=== PATIENT | male | born 1965 | race Caucasian/White ===

== ENCOUNTER 2021-06-15 00:53 | Day surgery (SDC) | payer BC, SELFPAY ==
[2021-05-29 13:09] VITALS: BMI 44.9
--- NOTE | 2021-06-14 12:20 | WPDANESEPPF ---
Anes - Initial Pre Proc Eval Procedure: Operation Date: 06/15/21 07:30 Proposed Procedures p Screening Colonoscopy - Azam Marrero DO Date/Time: 06/14/21 12:20 Surgeon: Azam Marrero DO Pre Op Diagnosis: hx of colon polyps Patient Data Age: 56 Gender: M Height: 1.75 m Weight: 138 kg Allergies Allergy/AdvReac Type Severity Reaction Status Date / Time No Known Allergies Allergy Verified 06/15/21 06:18 Home Medications Medication Instructions Recorded Confirmed Type atorvastatin 20 mg PO DAILY 05/29/21 06/15/21 History lisinopril-hydrochlorothiazide 1 tablet PO DAILY 05/29/21 06/15/21 History metformin 500 mg PO DAILY 05/29/21 06/15/21 History metoprolol tartrate 100 mg PO DAILY 05/29/21 06/15/21 History Patient hx anesthesia problems: none Family hx anesthesia problems: none PMFSH Past Medical History Medical History (Updated 06/15/21 @ 07:33 by Azam Marrero DO) Diabetes type 2, controlled Hyperlipidemia Hypertension Family History Family History (Updated 07/29/14 @ 07:13 by DOCTOR UNKNOWN) Other Family history of arthritis Hypertension Social History Social History Smoking status: Former smoker Smoking end date: 12/02/03 Alcohol intake: current Alcohol use details: 09-12 ruby elizabeth daily Substance use type: does not use Living arrangements: with family Gender identity (if verbalized by the patient): Male Spiritual care concerns: No Anes - Eval Final PreProcedure Day of Procedure 06/14/21 12:20 Patient weight: morbidly obese Heart: regular rate and rhythm Lungs: clear to auscultation and normal air movement Airway: Mallampati scale class II Neurological: alert and oriented Last oral intake: >/= 8 hours ASA classification: III Emergent: no Anesthetic plan: proceed Anesthesia type and monitoring: general GIVS and standard monitoring Informed Consent: The patient's anesthetic plan and its attendant risks and benefits were discussed with the patient/family/POA. Questions were solicited and answers provided to the satisfaction of the patient/family/POA.
[2021-06-15 06:41] VITALS: BP 123/86; PULSE 87; RESP 18; O2SAT 98; BMI 44.5
[2021-06-15 06:42] LABS: Glucose Point of Care 156 mg/dl (65-105)
[2021-06-15] MEDS: LACTATED RINGERS 1,000 ML 150 ML IV CONT (06:44)
--- NOTE | 2021-06-15 07:32 | PM.IMHP ---
H&P: HPI History of Present Illness Date/Time: 06/15/21 07:32 Chief Complaint: Hx of colon polyps Narrative: This is a 56-year-old man who presents for colonoscopy. His last colonoscopy was 5 years ago and polyps were removed at that time. He denies any family history of colon cancer. He denies any hematochezia or melena. Review of Systems Review of Systems: All systems reviewed & are unremarkable except as noted in HPI and below Constitutional: Constitutional: Denies chills, Denies fever(s), Denies headache(s) and Denies weight loss Eyes: Eyes: Denies change in vision ENT: Denies dizziness, Denies headache(s), Denies neck mass and Denies throat swelling Cardiovascular: Cardiovascular: Denies chest pain, Denies lightheadedness and Denies dyspnea Respiratory: Respiratory: Denies cough, Denies dyspnea and Denies wheezing Gastrointestinal: Gastrointestinal: Denies abdominal pain, Denies change in bowel habits, Denies nausea and Denies vomiting Genitourinary: Genitourinary: Denies hematuria and Denies dysuria Musculoskeletal: Musculoskeletal: Reports as per HPI Integumentary/Breasts: Skin/Breast: Reports as per HPI Neurologic: Denies dizziness and Denies headache(s) Allergic/Immunologic: Allergic/Immunologic: Denies throat swelling and Denies wheezing [facility] Past Medical History Medical History (Updated 06/15/21 @ 07:33 by Azam Marrero DO) Diabetes type 2, controlled Hyperlipidemia Hypertension Family History Family History (Updated 07/29/14 @ 07:13 by DOCTOR UNKNOWN) Other Family history of arthritis Hypertension Social History Social History Smoking status: Former smoker Smoking end date: 12/02/03 Alcohol intake: current Alcohol use details: 09-12 ruby elizabeth daily Substance use type: does not use Living arrangements: with family Gender identity (if verbalized by the patient): Male Spiritual care concerns: No Meds Home Medications and Allergies Home Medications Medication Instructions Recorded Confirmed Type atorvastatin 20 mg PO DAILY 05/29/21 06/15/21 History lisinopril-hydrochlorothiazide 1 tablet PO DAILY 05/29/21 06/15/21 History metformin 500 mg PO DAILY 05/29/21 06/15/21 History metoprolol tartrate 100 mg PO DAILY 05/29/21 06/15/21 History Allergies Allergy/AdvReac Type Severity Reaction Status Date / Time No Known Allergies Allergy Verified 06/15/21 06:18 Vital Signs Vital Signs - 24 hr 06/15/21 06:41 Pulse Rate 87 Respiratory Rate 18 Blood Pressure 123/86 Pulse Oximetry 98 Exam Const: General: no acute distress and alert Orientation/consciousness: patient oriented x3 HENMT: Head: normocephalic and atraumatic Ears: hearing grossly normal bilaterally General nose exam: Normal nares present Mouth: Yes Normal oral and palatal mucosa present Eyes: Periorbital: periorbital findings normal Sclera: sclerae normal EOM: EOMs intact bilaterally Neck: Neck: normal visual inspection, no lymphadenopathy and trachea midline Chest: Chest palpation & inspection: normal inspection of the chest Resp: Effort & Inspection: normal respiratory effort Auscultation: clear to auscultation bilaterally Cardio: Jugular venous distension: no JVD Rate: regular rate Rhythm: regular rhythm Heart sounds: S1 normal heart sound present and S2 normal heart sound present Peripheral pulses: Peripheral pulses 2+ throughout GI: Inspection: normal to inspection GI Palp: Yes Soft to palpation, No Tenderness to palpation present (GI), No Guarding due to palpation present (GI) and No Rebound tenderness present Percussion: Yes normal to percussion Auscultation: normal bowel sounds : General: Yes no CVA tenderness Back/Spine/Pelvis: Back: no CVA tenderness Neuro: General: patient oriented x3, no focal motor deficits and CN's II-XI intact bilaterally Cognition (Neuro): normal cognition Speech: normal speech Motor exam (neuro): 5/5 motor strengt
[2021-06-15] MEDS: SIMETHICONE ORAL SUSPENSION 20 MG/0.3 ML 30 ML BOTTLE 0.6 ML IRRIGATION (07:44)
[2021-06-15 07:55] VITALS: BP 103/64; PULSE 80; RESP 21; O2SAT 96
[2021-06-15 08:05] VITALS: BP 114/58; PULSE 70; RESP 12; O2SAT 99
[2021-06-15 08:15] VITALS: BP 109/60; PULSE 68; RESP 14; O2SAT 99
== END 2021-06-15 08:24 | disposition home or self-care (01) ==
PROVIDERS: PCP Internal Medicine; Visit Provider Surgery
PROC: 0DJD8ZZ Inspection of Lower Intestinal Tract, Via Natural or Artificial Opening Endoscopic (ICD-10-PCS; CPT 45378; principal; 2021-06-15 07:30)
DX: Z12.11 Encounter for screening for malignant neoplasm of colon (principal); D12.3 Benign neoplasm of transverse colon; E11.9 Type 2 diabetes mellitus without complications; E78.5 Hyperlipidemia, unspecified; I10 Essential (primary) hypertension; Z87.891 Personal history of nicotine dependence
CPT/HCPCS: 45380; 82948; 88305; J2704; J7120

== ENCOUNTER 2021-07-28 11:34 | Observation (INO) | payer BC, SELFPAY ==
[2021-07-28] VITALS (12 sets, daily range): BP systolic 92–132; BP diastolic 56–95; PULSE 75–153; RESP 14–21; TEMP 36.3–36.9; O2SAT 97–98; BMI 44.1
--- NOTE | 2021-07-28 11:48 | ECG_ITS ---
Measurements Intervals [place] Rate: 148 P: [place]: 0 QRS: -16 QRSD: 76 T: 20 QT: 274 QTc: 430 Interpretive Statements ATRIAL FLUTTER/TACHYCARDIA WITH RAPID VENTRICULAR RESPONSE BASELINE ARTIFACT- II, III ,AVL, AVF ABNORMAL ECG Electronically Signed On 07-28-2021 13:08:15 CDT by Martinez Cardona D.O.
[2021-07-28] MEDS: dilTIAZem HCl INJ 25 MG/5 ML VIAL 10 MG IV PUSH (12:14)
[2021-07-28 12:17] LABS: Basophils Absolute Auto 0.07 K/mm3 (0.00-0.10); Basophils Percent Auto 0.9 % (0.0-1.0); Eosinophils Absolute Auto 0.12 K/mm3 (0.02-0.50); Eosinophils Percent Auto 1.5 % (1.0-6.0); Hematocrit 42.8 % (40.0-54.0); Hemoglobin 14.4 g/dL (14.0-18.0); Immature Granulocyte Absolute 0.05 K/mm3 (0.00-0.00); Immature Granulocyte Percent A 0.6 % (0.0-0.0); Lymphocytes Absolute Auto 1.46 K/mm3 (1.10-4.50); Mean Corpuscular HGB Conc 33.6 g/dL (32.0-36.0); Mean Corpuscular Hemoglobin 32.4 pg (27.0-31.0); Mean Corpuscular Volume 96.4 fL (78.0-102.0); Mean Platelet Volume 10.1 fl (8.7-11.0); Monocytes Absolute Auto 0.67 K/mm3 (0.10-0.90); Monocytes Percent Auto 8.3 % (2.0-11.0); Neutrophils Absolute Auto 5.8 K/mm3 (1.7-7.2); Neutrophils Percent Auto 70.7 % (50.0-70.0); Platelet Count Result 235 K/mm3 (150-420); Red Blood Count 4.44 M/mm3 (4.70-6.10); Red Cell Distribution Width 13.4 % (11.6-14.4); White Blood Count 8.1 K/mm3 (4.8-10.8)
[2021-07-28 12:29] LABS: INR 1.1; Prothrombin Time 11.4 Seconds (9.50-12.10)
--- NOTE | 2021-07-28 12:34 | ED.GENADULT ---
HPI - General Adult General Chief complaint: Arrhythmia/Palpitations Stated complaint: sent over by Source: patient Mode of arrival: ambulatory Limitations: no limitations History of Present Illness HPI narrative: Lb is a 56M with a PMH of colon polyps, HLD, HTN, DMII and etoh abuse that presented to the ED from Dr. Cain's clinic. A few days ago he felt his heart race but it went away. However, he had been taking his vitals and his heart rate was in the 140's so he made an appointment. An EKG in clinic showed a rate of 150's. Despite this HR he has no palpitations, CP, SOB, lightheadedness, nausea or vomiting. Related Data Home Medications Medication Instructions Recorded Confirmed atorvastatin 20 mg PO DAILY 05/29/21 07/28/21 lisinopril-hydrochlorothiazide 1 tablet PO DAILY 05/29/21 07/28/21 metformin 500 mg PO DAILY 05/29/21 07/28/21 metoprolol tartrate 100 mg PO DAILY 05/29/21 07/28/21 Allergies Allergy/AdvReac Type Severity Reaction Status Date / Time No Known Allergies Allergy Verified 06/15/21 06:18 Review of Systems Constitutional: Constitutional: Reports no additional constitutional complaints Eyes: Eyes: Reports no additional eye complaints ENT: Reports system reviewed and no additional complaints, except as documented Cardiovascular: Cardiovascular: Reports as per HPI Respiratory: Respiratory: Reports no additional respiratory complaints Gastrointestinal: Gastrointestinal: Reports no additional gastrointestinal complaints Genitourinary: Genitourinary: Reports no additional male genitourinary complaints Musculoskeletal: Musculoskeletal: Reports no additional musculoskeletal complaints Integumentary/Breasts: Skin/Breast: Reports system reviewed and no additional complaints, except as docu Neurologic: Reports system reviewed and no additional complaints, except as documented Psychiatric: Psychiatric: Reports no additional psychiatric complaints Endocrine: Endocrine: Reports no additional endocrine complaints Hematologic/Lymphatic: Hematologic/Lymphatic: Reports no additional hematologic/lymphatic complaints Allergic/Immunologic: Allergic/Immunologic: Reports no additional allergic/immunologic complaints [facility] Past Medical History Medical History Diabetes type 2, controlled Hyperlipidemia Hypertension Family History Family History Other Family history of arthritis Hypertension Social History Social History Smoking packs per day: 1 Smoking cigarettes per day: 20.0 Years smoked: 25 Smoking pack-years: 25.00 Smoking status: Former smoker Tobacco type: cigarettes Second hand tobacco smoke exposure: No Smoking end date: 07/07/03 Alcohol intake: current Drinks per week: 20 Alcohol use details: 09-12 ruby elizabeth daily Substance use: never Substance use type: does not use Gender identity (if verbalized by the patient): Male Spiritual care concerns: No Exam Const: General: no acute distress and alert Orientation/consciousness: patient oriented x3 Limitations: No altered mental status HENMT: Head: normal to inspection Other: atrauamtic Eyes: Conjunctivae: conjunctivae normal Pupils: Equal, round and reactive pupils present Neck: Neck: normal visual inspection Chest: Chest palpation & inspection: normal inspection of the chest Resp: Effort & Inspection: normal respiratory effort Auscultation: clear to auscultation bilaterally Cardio: Rate: tachycardic Rhythm: regular rhythm Heart sounds: no murmurs GI: Inspection: non-distended GI Palp: Yes Soft to palpation, No Tenderness to palpation present (GI) and No Guarding due to palpation present (GI) Skin: General skin exam: normal color Rashes: no rashes Neuro: General: patient oriented x3 and moves all extremities
[2021-07-28 12:42] LABS: Alanine Aminotransferase 77 U/L (16-63); Albumin Level 3.8 g/dL (3.4-5.0); Alkaline Phosphatase 81 U/L (46-116); Anion Gap 10 mmol/L (8-16); Aspartate Amino Transferase 27 U/L (15-37); Bilirubin,Total 0.4 mg/dL (0.00-1.00); Blood Urea Nitrogen 17 mg/dL (7-18); Calcium 9.1 mg/dL (8.5-10.1); Carbon Dioxide 28 mmol/L (21-32); Chloride 101 mmol/L (98-108); Estimated CRCL calculation 106 ml/min; Estimated Glomerular Filt Rate > 60; Glucose 114 mg/dL (70-99); NT Pro B Type Natriuretic Pept 2664 pg/mL (0-125); Osmolality Calculated 290 mOsm/kg (285-295); Potassium 4.3 mmol/L (3.5-5.1); Sodium 139 mmol/L (136-145); Total Protein 7.3 g/dL (6.4-8.2)
--- NOTE | 2021-07-28 12:42 | PC.NURSE ---
cardizem gtt increased to 10 ml/hr
[2021-07-28 12:45] LABS: Troponin I 16.6 ng/L (0.00-60.4)
[2021-07-28] MEDS: METOPROLOL TARTRATE INJ 5 MG/5 ML VIAL IV PUSH (13:22)
[2021-07-28] MEDS: METOPROLOL TARTRATE 50 MG TAB PO (13:58)
[2021-07-28] MEDS: dilTIAZem HCL CD 180 MG CAP.ER.24H 360 MG PO (13:58)
--- NOTE | 2021-07-28 14:20 | PC.NURSE ---
obs room requested from shelley churchill rn. room 202 provided. registration notified.
--- NOTE | 2021-07-28 15:27 | ECG_ITS ---
Measurements Intervals [place] Rate: 84 P: 55 NV: 177 QRS: 0 QRSD: 86 T: 14 QT: 372 QTc: 440 Interpretive Statements SINUS RHYTHM EARLY PRECORDIAL R/S TRANSITION BASELINE ARTIFACT- I, II, III, AVL, AVF BORDERLINE ECG Electronically Signed On 07-28-2021 15:45:06 CDT by Martinez Cardona D.O.
--- NOTE | 2021-07-28 15:30 | PC.NURSE ---
aware that he is in sr on tele and rates 70-80's. denies chest pains. cardizem gtt stopped at this time. cardio aware of need for ekg.
[2021-07-28] MEDS: ENOXAPARIN 40 MG/0.4 ML SYRINGE SUB-Q (17:24)
[2021-07-29] VITALS: BP 95/60; PULSE 82; RESP 14; TEMP 36.3; O2SAT 96
[2021-07-29 04:00] VITALS: BP 99/55; PULSE 85; RESP 16; TEMP 36.5; O2SAT 97
--- NOTE | 2021-07-29 04:23 | PC.NURSE ---
Patient alert and oriented x4. Up in room independently. Denies feelings of heart flutter or palpitations.
[2021-07-29 06:25] LABS: Hematocrit 40.9 % (40.0-54.0); Hemoglobin 13.3 g/dL (14.0-18.0); Mean Corpuscular HGB Conc 32.5 g/dL (32.0-36.0); Mean Corpuscular Hemoglobin 31.7 pg (27.0-31.0); Mean Corpuscular Volume 97.4 fL (78.0-102.0); Mean Platelet Volume 10.4 fl (8.7-11.0); Platelet Count Result 221 K/mm3 (150-420); Red Cell Distribution Width 13.4 % (11.6-14.4); White Blood Count 6.8 K/mm3 (4.8-10.8)
[2021-07-29 06:45] LABS: Alanine Aminotransferase 72 U/L (16-63); Albumin Level 3.4 g/dL (3.4-5.0); Alkaline Phosphatase 72 U/L (46-116); Anion Gap 7 mmol/L (8-16); Aspartate Amino Transferase 27 U/L (15-37); Bilirubin,Total 0.5 mg/dL (0.00-1.00); Blood Urea Nitrogen 14 mg/dL (7-18); Calcium 8.5 mg/dL (8.5-10.1); Carbon Dioxide 30 mmol/L (21-32); Chloride 104 mmol/L (98-108); Estimated CRCL calculation 116 ml/min; Estimated Glomerular Filt Rate > 60; Glucose 114 mg/dL (70-99); Magnesium 1.9 mg/dL (1.8-2.4); Osmolality Calculated 293 mOsm/kg (285-295); Potassium 3.7 mmol/L (3.5-5.1); Sodium 141 mmol/L (136-145); Total Protein 6.5 g/dL (6.4-8.2); Troponin I 17.2 ng/L (0.00-60.4)
[2021-07-29 07:04] LABS: NT Pro B Type Natriuretic Pept 831 pg/mL (0-125)
[2021-07-29 07:47] VITALS: BP 107/75; PULSE 90; RESP 18; TEMP 36.2; O2SAT 95
--- NOTE | 2021-07-29 08:00 | PC.NURSE ---
No chest pain up in room in no distress, wanting to go home today, Telemetry SR
--- NOTE | 2021-07-29 08:19 | PM.SD2 ---
Same Day Admit/Disch: HPI History of Present Illness Chief complaint: Atrial Flutter W/RVR Narrative: Lb Salinas is a 56 year old male that presented to our emergency department from his primary care physician office due to palpitations. Patient has a past medical history of HLD, hypertension, type 2 diabetes, alcohol abuse, and colon polyps. According to patient approximately 1 to 2 weeks ago while attempting to sleep he felt restless and was unable to sleep. According to patient a few days ago he felt restless once again, and decided to take his blood pressure and heart rate and noted that his heart rate was in the 140s 150s he was unable to get his heart rate down and decided to make an appointment with his primary care physician Dr. Cain. While at Dr. Cain's office patient continues to be tachycardic and was sent to our ED. Patient notes that the only symptoms he felt was restlessness at night he did not experience any palpitations or shortness of breath. Vital signs 97.1, heart rate 90, 18, 95% on room air, 107/75, WBCs 8.1, hemoglobin 14.4, hematocrit 42.8, platelets 235, sodium 141, potassium 3.7, BUN 14, creatinine 0.83, glucose 114, AST 27 ALT 72 troponin negative x2 BUN 2664, EKG a flutter/tachycardia with RVR heart rate of 148. While in the ED patient was given metoprolol. Patient will discharge home on Cardizem and Eliquis. The patient denies SOB, CP, palpitation, extremity numbness, lightheadedness, dizziness, constipation, diarrhea, chills, or fever. Patient agrees that he is ready for discharge. Observation Time spent over 60 minutes Disposition Home with self-care [facility] Past Medical History Medical History (Updated 07/29/21 @ 10:44 by MADELIN Bradley) Diabetes type 2, controlled Hyperlipidemia Hypertension Family History Family History Other Family history of arthritis Hypertension Social History Social History Smoking packs per day: 1 Smoking cigarettes per day: 20.0 Years smoked: 25 Smoking pack-years: 25.00 Smoking status: Former smoker Tobacco type: cigarettes Second hand tobacco smoke exposure: No Smoking end date: 07/07/03 Alcohol intake: current Drinks per week: 20 Alcohol use details: 09-12 ruby elizabeth daily Substance use: never Substance use type: does not use Gender identity (if verbalized by the patient): Male Spiritual care concerns: No Same Day Admit/Disch: Med Pre-admit Medications Home Medications Medication Instructions Recorded Confirmed Type atorvastatin 20 mg PO DAILY 05/29/21 07/28/21 History lisinopril-hydrochlorothiazide 1 tablet PO DAILY 05/29/21 07/28/21 History metformin 500 mg PO DAILY 05/29/21 07/28/21 History apixaban See Rx Instructions .ROUTE 07/29/21 Rx .COMPLEX #74 ea diltiazem HCl 360 mg PO DAILY 30 Days #30 cap 07/29/21 Rx Exam Narrative: GENERAL: This is a well-nourished, well-developed patient, in no apparent distress. HEAD: normocephalic, atraumatic. EYES: PERRL. Sclera clear/white. Vision is grossly intact. EARS: External ears normal, auditory canals clear and without drainage, TMs normal without perforation. Hearing grossly intact. NOSE: External nose normal with no obvious nasal discharge, nares without redness, no rhinorrhea. THROAT: Mucous membranes moist, posterior pharynx clear. NECK: Neck supple, non-tender without lymphadenopathy, masses or thyromegaly. CARDIOVASCULAR: Regular rate and rhythm without murmurs, gallops, or rubs. RESPIRATORY: Clear to auscultation. Breath sounds equal bilaterally. No wheezes, rales, or rhonchi. GASTROINTESTINAL: Abdomen soft, non-tender, nondistended. Bowel sounds are active. No hepato-splenomegaly, or palpable masses. No guarding. SKIN: warm, intact with no suspicious lesions or rash, good texture and turgor. NEURO: awake, alert, and oriented to person,
[2021-07-29 08:30] VITALS: PULSE 90
[2021-07-29] MEDS: metFORMIN HCL XR 500 MG TAB.SR.24H PO (08:30)
[2021-07-29] MEDS: METOPROLOL TARTRATE 50 MG TAB 100 MG PO (08:30)
[2021-07-29] MEDS: lisinopriL 20 MG TABLET PO (08:31)
[2021-07-29] MEDS: hydroCHLOROthiazide 12.5 MG CAPSULE PO (08:31)
[2021-07-29] MEDS: ATORVASTATIN 10 MG TABLET 20 MG PO (08:31)
--- NOTE | 2021-07-29 10:36 | PC.NURSE ---
telemetry dc'd, saline lock removed, ready to go home
--- NOTE | 2021-07-29 10:55 | PC.NURSE ---
Discharge to home personal items returned to patient, no questions upon dc home
== END 2021-07-29 10:55 | disposition home or self-care (01) ==
LOC: CHSED 11:37 → CHS2ND 14:24
PROVIDERS: Nurse Practitioner; Admitting Provider Family Medicine; Emergency Provider Family Medicine; PCP Internal Medicine; Visit Provider Family Medicine
DX: I48.92 Unspecified atrial flutter (principal); E78.5 Hyperlipidemia, unspecified; I10 Essential (primary) hypertension; E11.9 Type 2 diabetes mellitus without complications; F10.10 Alcohol abuse, uncomplicated; Z86.010 Personal history of colon polyps; Z87.891 Personal history of nicotine dependence
CPT/HCPCS: 36415; 80053; 83735; 83880; 84484; 85025; 85027; 85610; 93005; 96365; 96366; 96372; 96375; 99285; A9270; G0378; J1650

== ENCOUNTER 2021-08-10 12:09 | Outpatient (CLI) | payer BC, SELFPAY ==
--- NOTE | 2021-08-10 13:05 | ECHO_ITS ---
Patient Info Name: Lb Salinas Age: 56 years : 1965 Gender: Male Ht: 69 in Wt: 309 lbs BSA: 2.68 m2 HR: 89 bpm BP: 119 / 74 mmHg Exam Date: 08/10/2021 12:12 PM Exam Location: [facility], [place] Patient Status: Outpatient Admit Date: 08/10/2021 Staff Ordering Physician: Cathy Cain MD Epic Ambulatory Specialists: Akin Zapien RDCS, RT Attending Provider: Cathy Cain MD Referring Physician: Ant VARGAS; Exam Type: CA echo doppler color flow Study Info Indications I10 - Essential (primary) hypertension Complete two-dimensional, color flow and Doppler transthoracic echocardiogram is performed. Strain analysis performed. Summary 1. Complete two-dimensional, color flow and Doppler transthoracic echocardiogram is performed. 2. Left ventricular chamber dimension is normal. 3. Left ventricular systolic function is normal, estimated at 55-60%. 4. There is mildly increased left ventricular wall thickness. 5. The left ventricular diastolic function is normal. 6. E/e' 6 is not elevated. 7. Global longitudinal strain is abnormal at -14.5%. 8. Left atrial chamber dimension is mildly enlarged. 9. Dilated inferior vena cava with >50% collapse upon inspiration consistent with normal right atrial pressure, 10 mmHg. Left Ventricle E/e' 6 is not elevated. Global longitudinal strain is abnormal at -14.5%. Left ventricular chamber dimension is normal. Left ventricular systolic function is normal, estimated at 55-60%. There is mildly increased left ventricular wall thickness. The left ventricular diastolic function is normal. Right Ventricle Right ventricular systolic function is normal and with normal TAPSE 2.3 cm. Right ventricular chamber dimension is normal. Left Atria Left atrial chamber dimension is mildly enlarged. Right Atria Right atrial chamber dimension is normal. Aortic Valve The aortic valve is trileaflet. There is no aortic valve stenosis. There is no aortic valve regurgitation. Pulmonic Valve There is no pulmonic regurgitation. Mitral Valve There is no mitral valve stenosis. There is no mitral valve regurgitation. Tricuspid Valve There is no tricuspid valve regurgitation. Pericardium/Pleural There is no pericardial effusion. Inferior Vena Cava Dilated inferior vena cava with >50% collapse upon inspiration consistent with normal right atrial pressure, 10 mmHg. Aorta The aortic root size at the sinus of Valsalva is normal. Left Ventricular Outflow Tract Name Value Normal LVOT Doppler LVOT Peak Velocity 117 cm/s LVOT Peak Gradient 6 mmHg LVOT Mean Gradient 3 mmHg LVOT VTI 21 cm LVOT VTI/AV VTI Ratio 0.7 Mitral Valve Name Value Normal MV Doppler MV Decel Frontier 408 cm/s2 MV PHT 52 ms MV Area (PHT) 4.2 cm2
== END 2021-08-10 12:10 | disposition home or self-care (01) ==
LOC: CHSIMG 12:10
PROVIDERS: PCP Internal Medicine; Visit Provider Internal Medicine
DX: I10 Essential (primary) hypertension (principal)
CPT/HCPCS: 93306

== ENCOUNTER 2022-04-17 12:08 | Outpatient (CLI) | payer BC, SELFPAY ==
--- NOTE | ~2022-04-17 | US_ITS ---
EXAMINATION: US retroperitoneal comp DATE: 04/17/2022 12:41 INDICATION: Right flank pain TECHNIQUE: Multiple ultrasound grayscale images of the kidneys were obtained. COMPARISON: None. FINDINGS: The right kidney measures 11.7 x 6.5 x 6.3 cm. The left kidney measures 11.0 x 6.6 x 5.6 cm. The kidn eys demonstrate normal echogenicity. There is no hydronephrosis in either kidney. No stones identifi ed. The bladder is normal. IMPRESSION: 1. Normal kidneys without hydronephrosis. Reviewed, dictated and finalized at location A.
--- NOTE | ~2022-04-17 | US_ITS ---
EXAMINATION: US scrotum doppler DATE: 04/17/2022 12:41 INDICATION: Right flank pain radiating to the right testis TECHNIQUE: Testicular sonogram utilizing grayscale and Doppler COMPARISON: None. FINDINGS: The right testis measures 3.9 x 2.1 x 3.2 cm. The left testis measures 2.9 x 1.8 x 3.1 cm. Symmetric normal grayscale appearance to both testes. There is normal vascular flow to both testes. The right e pididymis is normal with normal vascular flow. The left epididymis is normal with normal vascular ramila w. There is no varicocele or hydrocele. IMPRESSION: 1. Normal scrotal ultrasound. Reviewed, dictated and finalized at location A.
== END 2022-04-17 12:09 | disposition home or self-care (01) ==
LOC: CHSIMG 12:10
PROVIDERS: PCP Internal Medicine; Visit Provider Internal Medicine
DX: R10.9 Unspecified abdominal pain (principal)
CPT/HCPCS: 76770; 76870; 93976

== ENCOUNTER 2023-04-25 10:14 | Outpatient (CLI) | payer BC, SELFPAY ==
[2023-04-25 10:36] LABS: Basophils Absolute Auto 0.06 K/mm3 (0.00-0.10); Basophils Percent Auto 0.8 % (0.0-1.0); Eosinophils Absolute Auto 0.12 K/mm3 (0.02-0.50); Eosinophils Percent Auto 1.6 % (1.0-6.0); Hematocrit 42.6 % (40.0-54.0); Hemoglobin 14.1 g/dL (14.0-18.0); Immature Granulocyte Absolute 0.04 K/mm3 (0.00-0.00); Immature Granulocyte Percent A 0.5 % (0.0-0.0); Lymphocytes Absolute Auto 1.33 K/mm3 (1.10-4.50); Lymphocytes Percent Auto 18.2 % (18.0-42.0); Mean Corpuscular HGB Conc 33.1 g/dL (32.0-36.0); Mean Corpuscular Hemoglobin 30.9 pg (27.0-31.0); Mean Corpuscular Volume 93.2 fL (78.0-102.0); Mean Platelet Volume 10.5 fl (8.7-11.0); Monocytes Absolute Auto 0.56 K/mm3 (0.10-0.90); Monocytes Percent Auto 7.7 % (2.0-11.0); Neutrophils Absolute Auto 5.2 K/mm3 (1.7-7.2); Neutrophils Percent Auto 71.2 % (50.0-70.0); Platelet Count Result 260 K/mm3 (150-420); Red Blood Count 4.57 M/mm3 (4.70-6.10); Red Cell Distribution Width 12.8 % (11.6-14.4); White Blood Count 7.3 K/mm3 (4.8-10.8)
[2023-04-25 11:23] LABS: Alanine Aminotransferase 46 U/L (16-63); Albumin Level 3.8 g/dL (3.4-5.0); Alkaline Phosphatase 107 U/L (46-116); Anion Gap 8 mmol/L (8-16); Aspartate Amino Transferase 20 U/L (15-37); Bilirubin,Total 0.4 mg/dL (0.00-1.00); Blood Urea Nitrogen 15 mg/dL (7-18); Calcium 9.1 mg/dL (8.5-10.1); Carbon Dioxide 29 mmol/L (21-32); Chloride 100 mmol/L (98-108); Estimated Glomerular Filt Rate > 60; Free T3 3.22 pg/mL (2.18-3.98); Free T4 Free Thyroxine 0.89 ng/dL (0.76-1.46); Glucose 142 mg/dL (70-99); Magnesium 2.1 mg/dL (1.8-2.4); Osmolality Calculated 286 mOsm/kg (285-295); Potassium 4.5 mmol/L (3.5-5.1); Sodium 137 mmol/L (136-145); Thyroid Stimulating Hormone 2.32 uIU/mL (0.36-3.74)
== END 2023-04-25 10:15 | disposition home or self-care (01) ==
LOC: CHSLAB 10:17
PROVIDERS: PCP Internal Medicine; Visit Provider Internal Medicine
DX: R00.2 Palpitations (principal); R42 Dizziness and giddiness
CPT/HCPCS: 36415; 80053; 83735; 84439; 84443; 84481; 85025

== ENCOUNTER 2023-05-01 09:26 | Outpatient (CLI) | payer BC, SELFPAY ==
--- NOTE | 2023-05-27 10:01 | WPDHOLTEREM ---
Holter/Event Monitor Holter/Event Monitor Date of procedure: 05/04/23 Holter/Event Procedure: Event Monitor Indications: Palpitations Conclusion: 1. Event monitor from 05/04/23-05/23/23. This is an event only monitor. There are 4 available transmissions for analysis. 2. Underlying rhythm is sinus rhythm. From transmissions, HR range 88-102 bpm. 3. No supraventricular or ventricular arrhythmias. 4. No significant pauses greater than 2 seconds. 5. Patient reports 2 episodes of dizziness which demonstrate sinus rhythm, HR range 88-93 bpm.
== END 2023-05-01 09:27 | disposition home or self-care (01) ==
LOC: CHSCARD 09:27
PROVIDERS: PCP Internal Medicine; Visit Provider Internal Medicine
DX: R00.2 Palpitations (principal); R42 Dizziness and giddiness
CPT/HCPCS: 93270

== ENCOUNTER 2023-12-12 07:15 | Outpatient (CLI) | payer BC, SELFPAY ==
--- NOTE | ~2023-12-12 | US_ITS ---
EXAMINATION: US arterial ankle brachial ind DATE: 12/12/2023 07:50 INDICATION: Peripheral arterial disease. TECHNIQUE: Segmental pressures and plethysmographic and Doppler waveforms of the brachial and lower e xtremity arteries were obtained. COMPARISON: None. FINDINGS: Right and left brachial artery pressures of 143 mm Hg and 138 mm Hg, respectively, are concordant (no rmal difference <= 30 mmHg). The right ankle-brachial index (AVTAR) is 1.18 (normal >= 0.9-1.0). The right great toe-brachial index (TBI) is 0.90 (normal >= 0.65). Arterial Doppler waveforms are biphasic at the ankle. The left AVTAR is 1.15. The left TBI is 0.88. Arterial Doppler waveforms are biphasic at the ankle. IMPRESSION: 1. No significant arterial occlusive disease. Reviewed, dictated and finalized at location A. TS COORDINATOR
== END 2023-12-12 07:16 | disposition home or self-care (01) ==
LOC: CHSIMG 07:16
PROVIDERS: PCP Internal Medicine; Visit Provider Internal Medicine
DX: I73.9 Peripheral vascular disease, unspecified (principal)
CPT/HCPCS: 93922